=== PATIENT | female | born 1980 | race Caucasian/White ===

== ENCOUNTER 2018-09-15 11:34 | Emergency (ER) | payer BC ==
[~2018-09-15] VITALS: Ht 170.2 cm; Wt 80.8 kg
[~2018-09-15 11:34] MED LIST: NORCO 5-325 TA1 EACH PO
[2018-09-15] MEDS ORDERED: DOXYCYCLINE HY100 MG PO (11:49)
== END 2018-09-15 13:05 | disposition home or self-care (01) ==
LOC: ED 11:34
PROC: 0HQ1XZZ Repair Face Skin, External Approach (ICD-10-PCS; principal; 2018-09-15)
DX: S01.81XA Laceration without foreign body of other part of head, initial encounter (principal); Z90.49 Acquired absence of other specified parts of digestive tract; Z88.5 Allergy status to narcotic agent; V86.59XA Driver of other special all-terrain or other off-road motor vehicle injured in nontraffic accident, initial encounter
CPT/HCPCS: 12013; 90471; 90715; 99282-25

== ENCOUNTER 2021-08-25 05:50 | Day surgery (SDC) | payer BC ==
[~2021-08-25] VITALS: Ht 170.2 cm; Wt 79.1 kg
[~2021-08-25 05:50] MED LIST changes: +CALCI-MAX CAPS1 EACH PO; +DOXYCYCLINE HY100 MG PO; +SEA-OMEGA 1,001 EACH PO
--- NOTE | 2021-08-25 09:26 | NUR ---
08/25/21 0926 Chari Hernandez 0909 PT ARRIVED IN PACU NON RESPONSIVE TO NOXIOUS STIMULI WITH OPA IN PLACE. 0917 PT REACTIVE. OPA REMOVED. 919 RESTING WITH NO C/O'S.
--- NOTE | 2021-08-25 10:09 | NUR ---
0955: PT BACK TO DS TREATMENT ROOM FROM PACU WITH EYES CLOSED, RESP EVEN AND UNLABORED. PT AROUSES TO VERBAL STIMULATION, DENIES NAUSEA AND STATES "PRESSURE" WHEN ASKED ABOUT PAIN. PT DENIES WARM BLANKET AND LIGHTS DIMMED. PROVIDED ICED WATER AND CRACKERS AT BEDSIDE, CALL LIGHT WITHIN REACH. PT SPOUSE AT BEDSIDE WHO IS PROVIDED RX SCRIPT.
--- NOTE | 2021-08-25 10:35 | NUR ---
1025: PT USES CALL LIGHT TO NOTIFY RN, WOULD LIKE PAIN MEDS FOR "UNCOMFORTABLE PRESSURE" AND RATES 6/10. WARM BLANKETS ALSO PROVIDED. SPOUSE REMAINS AT BEDSIDE WITH CALL LIGHT IN REACH.
--- NOTE | 2021-08-25 11:27 | NUR ---
1100: BLEDSOE CATHETER EMPTIED OF APPROX 300 MLS BRIGHT YELLOW URINE, BALLOON EMPTIED OF APPROX 9 MLS CLEAR FLUID AND BLEDSOE REMOVED; PT TOLERATES WELL WITH NO PAIN. PT STATES "SOME OF THE PRESSURE HAS DECREASED WITHOUT THE CATHETER." PT HOB RAISED AND CALL LIGHT WITHIN REACH. PT SPOUSE PLANS TO EXIT ROOM TO TAKE RX SCRIPT TO PHARMACY.
--- NOTE | 2021-08-25 12:15 | NUR ---
1200: PT EATING CRACKER ON ENTRANCE TO ROOM, TOLERATES SIPS OF WATER. PT RATES PAIN 6/10 "A REALLY BAD CRAMP" AND WOULD LIKE PAIN MEDICATION. THIS RN CALLS DR. CHACON AND RECEIVES VERBAL ORDERS; SEE EMAR. WARM BLANKET PLACED ON LOWER ABD AND PT LAYS ON RIGHT SIDE. AMBULATION ENCOURAGED TO HELP WITH GAS PAIN/PRESSURE. CALL LIGHT WITHIN REACH.
--- NOTE | 2021-08-25 13:07 | NUR ---
PT TAKEN TO OR, CONNECTED WITH JESSICA. HE IS HEADING HOME, WILL RETURN SHORTLY. GAVE ENCOURAGEMENT, WILL FOLLOW
[2021-08-25] MEDS ORDERED: IBUPROFEN800 MG PO (14:07)
[2021-08-25] MEDS ORDERED: ACETAMINOPHEN500 MG PO (14:08)
[2021-08-25] MEDS ORDERED: ONDANSETRON ODT8 MG PO (14:08)
[2021-08-25] MEDS ORDERED: DILAUDID2 MG PO (14:08)
--- NOTE | 2021-08-25 14:13 | NUR ---
PT BACK IN RM FROM PACU. JESSICA HAD LEFT TO GET PERSCRIPTIONS. PT IN PAIN, HAD JUST RECIVED MEDS. HAD PRAYER WITH PT, GAVE ENCOURAGEMENT, WILL FOLLOW
--- NOTE | 2021-08-25 15:31 | NUR ---
[id number]: DR. CHACON IN TO SEE PT. [id number]: PT HAS URGE TO VOID, SITS AT SIDE OF BED AND DANGLES LEGS PRIOR TO STANDING. PT STATES, "I FEEL A LITTLE SPACEY STILL" AND PT ENCOURAGED TO GO AT HER OWN PACE. STEADY AMBULATION WITH RN ASSIST TO BATHROOM, ABLE TO VOID APPROX 300 MLS BRIGHT YELLOW URINE WITH NO BLOOD PRESENT. BACK TO BED WITH RN ASSIST, CALL LIGHT WITHIN REACH.
--- NOTE | 2021-08-25 15:39 | NUR ---
[id number]: DC CRITERIA MET AT THIS TIME, PT EXPRESSES DESIRE TO GO HOME. PT DRESSES SELF WITH SPOUSE IN PT ROOM, ENCOURAGED TO OPEN CURTAIN WHEN FINISHED. [id number]: DC INSTRUCTIONS PRESENTED VERBALLY AND WRITTEN, PT VERBALIZES UNDERSTANDING AND ALL QUESTIONS ADDRESSED. PT SPOUSE EXITS PT ROOM AT THIS TIME TO PULL PERSONAL VEHICLE TO FRONT HOSPITAL ENTRANCE. PT ABLE TO TRANSFER SELF FROM STRETCHER TO , THIS RN WHEELS PT TO SPOUSE IN PARKING LOT.
--- NOTE | 2021-08-25 20:59 | OR ---
[facility] [address] [place], [place] [address] Signed DATE OF OPERATION: 08/25/2021 SURGEON: Karuna Koehler MD INSEAM LEVELER: Donald Jerez M.D. PREOPERATIVE DIAGNOSES: 1. Menorrhagia. 2. Dysmenorrhea. POSTOPERATIVE DIAGNOSES: 1. Menorrhagia. 2. Dysmenorrhea. 3. Endometriosis, right endometrioma. PROCEDURES: 1. Laparoscopy with total laparoscopic hysterectomy. 2. Bilateral salpingectomy. 3. Bilateral ovarian cystectomy. 4. Fulguration of endometriosis. 5. Cystoscopy. ANESTHESIA: General ET. ESTIMATED BLOOD LOSS: 30 mL. DRAINS: Mejía catheter. INDICATIONS AND FINDINGS: The patient is a 41-year-old female, who has been having increasing dysmenorrhea and menorrhagia over the last year. She has not tolerated control pills or the Mirena in the past. She is now ready to consider definitive surgery. At the time of surgery, exam under anesthesia was normal. At the time of laparoscopy, the left ovary had a small corpus luteum. The uterus appeared normal. There was endometriosis over the posterior cul-de-sac. There was an endometrioma of the right ovary. Electronically Signed By: KARUNA KOEHLER MD 08/25/212058 PATIENT NAME: JEANNETTE JOE OPERATIVE REPORT DATE OF : 80 REPORT #: [id number] PHYSICIAN: KARUNA KOEHLER MD PCP: MAE JOE MD REPORT IS CONFIDENTIAL AND NOT TO BE RELEASED WITHOUT AUTHORIZATION [facility] [address] [place], [place] [address] Signed DESCRIPTION OF PROCEDURE: The patient was prepped and draped in the dorsal lithotomy position. A weighted speculum was placed and the anterior lip of the cervix was visualized and grasped with a single-tooth tenaculum. The cavity was sounded to 8 cm. The endocervical canal was then dilated and a VCare cannula inserted and the balloon inflated at the fundus. The tenaculum and speculum removed. The cup was fitted over the cervix and a locking cap was fitted into place. Attention was directed above. The infraumbilical area was injected with 0.5% Marcaine plain. An incision was made with a knife, and each layer serially elevated and incised until the fascia was opened and identified and stay sutures of 0-Vicryl were placed. The peritoneum was opened bluntly. The [place] cannula was placed and the balloon inflated. Placement of the scope confirmed proper positioning. CO2 was then introduced into the abdomen. When the abdomen was appropriately distended, secondary ports were placed. These were placed laterally sightly below the level of the umbilicus. These areas were transilluminated, injected with the Marcaine, incision made with a knife and the trocars placed under direct vision. The left-sided port was a 5 mm port. The right side was a Veress needle, followed by the expanding port. The planned procedure appeared appropriate. The patient's left tube was identified and grasped and was excised from the fimbriated end to the cornu. The mesosalpinx was serially coagulated and divided using the LigaSure [place] device. The specimen was retrieved through the 8 mm port. The same procedure was carried out on the patient's right. Following this, the patient's left utero-ovarian pedicle and round ligament were serially coagulated and divided. The anterior leaf of the peritoneum could be opened allowing for the bladder flap to be formed. The posterior peritoneum was taken down as well. The uterine vessels were then skeletonized and coagulated multiple times and divided. Following this, attention was directed to the patient's right side. The same procedure was carried out. The utero-ovarian pedicle and round ligament were serially coagulated and divided. The anterior leaf of the peritoneum was then incised completing the bladder flap. The peritoneum was taken down posteriorly as well. The uterine vessels were coagulated multiple times and divided. Further dissection was done both posteriorly and anteriorly and the cup could be seen at that point. At this time, there was some bleeding noted at the left ovary from the corpus luteum cyst. The corpus luteum itself was removed because of the bleeding and the base was treated with cautery. The specimen was then from the cuff with the Sonicision device. This was begun posteriorly at the patient's right uterosacral ligament, taken around on the left and anteriorly and again started posteriorly and wrapped on the right anteriorly. The specimen could then be retrieved through the vagina. The vaginal pack was then placed allowing the pneumoperitoneum to re-accumulate. The pelvis was irrigated. There was a bleeding point on the left anterior cuff and this was controlled with the LigaSure device. The cuff itself was then closed with the Endostitch starting from the right uterosacral ligament taking care to incorporate the vaginal mucosa anteriorly and posteriorly. The stitch was run to the left uterosacral ligament and back to the center of the cuff. Electronically Signed By: KARUNA KOEHLER MD 08/25/21 8597 PATIENT NAME: JEANNETTE JOE OPERATIVE REPORT DATE OF : 80 REPORT #: [id number] PHYSICIAN: KARUNA KOEHLER MD PCP: MAE JOE MD REPORT IS CONFIDENTIAL AND NOT TO BE RELEASED WITHOUT AUTHORIZATION [facility] [address] [place], [place] [address] Signed There was some endometriosis at the posterior cuff just inside the right uterosacral ligament and this was treated with monopolar cautery. Attention was directed to the patient's right ovary and the endometrioma. This was opened using the cautery and a large amount of chocolate fluid was removed. The cyst was then opened using the LigaSure device and the specimen excised. The endometrioma base was then stripped. Cautery was used over the base to ensure hemostasis. The abdomen was then copiously irrigated and inspected and there appeared to be no evidence of any ongoing bleeding, but there was quite a bit of raw area especially over the ovaries. Tisseel was then sprayed over the bases of the ovarian cysts and across the cuff to aid in hemostasis. Following this, the instruments removed from the abdomen after allowing as much CO2 as possible to escape. The fascial incision at the umbilicus was closed with a running suture of 0-Vicryl. The skin incisions were closed with subcuticular sutures of 3-0 Vicryl Rapide. Attention was directed down below and the pack was removed. Cystoscopy was done after removal of the Mejía. She had received IV fluorescein. The bladder was inspected. There was no evidence of any injury. There was prompt spill of fluorescein stained urine from both of the ureteral orifices. The bladder was then drained and the Mejía catheter replaced. All sponge and needle counts were correct. The patient tolerated the procedure well and was taken to the recovery room in good condition. Karuna Koehler MD PJW/MODL /[id number] cc: Donald Jerez MD Copies: DONALD JEREZ MD ~ Electronically Signed By: KARUNA KOEHLER MD 08/25/21 2059 PATIENT NAME: JEANNETTE JOE OPERATIVE REPORT DATE OF : 80 REPORT #: [id number] PHYSICIAN: KARUNA KOEHLER MD PCP: MAE JOE MD REPORT IS CONFIDENTIAL AND NOT TO BE RELEASED WITHOUT AUTHORIZATION
--- NOTE | 2021-08-26 11:18 | PATH ---
[facility] [address], [place] [address] Signed SPECIMEN(S): A UTERUS, CERVIX, FALLOPIAN TUBES SPECIMEN(S): B LEFT OVARIAN CYST SPECIMEN(S): C RIGHT OVARY SPECIMEN SOURCE: A. UTERUS, CERVIX, FALLOPIAN TUBES B. LEFT OVARIAN CYST C. RIGHT OVARY CLINICAL HISTORY: Total laparoscopic hysterectomy. Dysmenorrhea, menorrhagia. FINAL PATHOLOGIC DIAGNOSIS: A. Uterus, cervix, and bilateral fallopian tubes, hysterectomy and bilateral salpingectomy: - Cervix: No histopathologic abnormality. - Endometrium: Secretory phase endometrium. - Myometrium: No histopathologic abnormality. - Fallopian tubes: Two benign fallopian tubes, one with paratubal cysts. - No evidence of malignancy. B. Cyst, left ovary, excision: - Fragments of hemorrhagic corpus luteum cyst. C. Designated "endometrioma" right ovary, excision: - Fragments of endometrioma with background ovarian tissue. NAL:cml:C2NR MICROSCOPIC EXAMINATION: Histologic sections of all submitted blocks are examined by light microscopy. These findings, together with the gross examination, support the pathologic diagnosis. GROSS DESCRIPTION: Three specimens are received in three containers, labeled "AH." A. The specimen, labeled "AH, A," and designated on the requisition "fallopian tubes, cervix and uterus," is received in formalin and consists of a uterus (99 g, 6.3 cm cornu to cornu, 6.0 cm superior to inferior, 4.2 cm anterior to posterior) with attached cervix (3.0 cm in length x 3.1 cm in diameter) with pink-duff to hemorrhagic cervical mucosa and slit-shaped os (1.2 x 0.3 cm). Also received are two detached and undesignated fimbriated fallopian tube segments (4.3 cm in length x 1.0 cm in diameter and 4.8 cm in length and ranging in PATIENT NAME: JEANNETTE JOE PATHOLOGY DATE OF : 80 REPORT #: [id number] PHYSICIAN: TAWNYA PATHOLOGY PCP: MAE JOE MD REPORT IS CONFIDENTIAL AND NOT TO BE RELEASED WITHOUT AUTHORIZATION [facility] [address], [place] [address] Signed diameter from 0.5-1.3 cm). One fallopian tube segment and the anterior aspect of the cervix are inked blue. Both fallopian tube segments are serially sectioned to reveal pink-duff unremarkable cut surfaces. The uninked fallopian tube has an attached 1.0 cm paratubal cyst. The fimbriae are submitted entirely. The uterine serosa is pink-duff and smooth. Sectioning of the cervix reveals a pink-duff to hemorrhagic endocervix (endocervical canal: 1.5 cm in length x 1.1 cm in diameter). The endometrial cavity (4.5 cm superior to inferior x 3.0 cm cornu to cornu) contains a red-pink endometrial lining that measures up to 0.8 cm in thickness. The myometrium is pink-duff and trabeculated with no masses grossly identified. [employer] sections are submitted as follows: (A1-A2) Fallopian tubes (A3) Cervix (A4) Endomyometrium B. The specimen, labeled "AH, B," and designated on the requisition "left ovarian cyst," is received in formalin and consists of multiple fragments of pink-duff to red-brown soft tissue (2.5 x 2.0 x 1.0 cm in aggregate). The specimen is submitted entirely in cassettes (B1-B2). C. The specimen, labeled "AH, C," and designated on the requisition "right endometrioma (right ovary per Mera)," is received in formalin and consists of multiple fragments of pink-duff to hemorrhagic soft tissue/ovary (3.8 x 2.7 x 1.0 cm in aggregate). [employer] sections are submitted in cassettes (C1-C2). AC (under the direct supervision of a pathologist) The Gross Description was prepared using a voice recognition system. The report was reviewed for accuracy; however, sound-alike word errors, addition and/or deletions may occur. If there is any question about this report, please contact Client Services. PERFORMING LABORATORY: The technical component [place] [address] (CLIA# [id number]). Professional interpretation was performed by [facility], [address] [place] [address] (CLIA# [id number]). Diagnostician: Sangeetha Noriega MD Pathologist PATIENT NAME: PILAR JOEXIMENA URBINA PATHOLOGY DATE OF : 80 REPORT #: [id number] PHYSICIAN: TAWNYA PATHOLOGY PCP: MAE JOE MD REPORT IS CONFIDENTIAL AND NOT TO BE RELEASED WITHOUT AUTHORIZATION [facility] [address] [place] [address] Signed Electronically Signed 08/26/2021 Copies: ~ PATIENT NAME: JEANNETTE JOE PATHOLOGY DATE OF : 80 REPORT #: [id number] PHYSICIAN: TAWNYA PATHOLOGY PCP: MAE JOE MD REPORT IS CONFIDENTIAL AND NOT TO BE RELEASED WITHOUT AUTHORIZATION
== END 2021-08-25 14:20 | disposition home or self-care (01) ==
LOC: DS 05:50
PROVIDERS: ATTEND Obstetrics & Gynecology
PROC: 0UT7FZZ Resection of Bilateral Fallopian Tubes, Via Natural or Artificial Opening With Percutaneous Endoscopic Assistance (ICD-10-PCS; 2021-08-25)
PROC: 0UB18ZZ Excision of Left Ovary, Via Natural or Artificial Opening Endoscopic (ICD-10-PCS; 2021-08-25)
PROC: 0UT9FZZ Resection of Uterus, Via Natural or Artificial Opening With Percutaneous Endoscopic Assistance (ICD-10-PCS; principal; 2021-08-25 07:30)
PROC: 0UT0FZZ Resection of Right Ovary, Via Natural or Artificial Opening With Percutaneous Endoscopic Assistance (ICD-10-PCS; 2021-08-25 07:30)
DX: N80.1 Endometriosis of ovary (principal); N83.8 Other noninflammatory disorders of ovary, fallopian tube and broad ligament
CPT/HCPCS: J0131; J0694; J1100; J1644; J1885; J2270; J2405; J2704; J2765; J3010; J3475; J7121